=== PATIENT | male | born 1980 | race Caucasian/White ===

== ENCOUNTER 2016-09-21 19:19 | Emergency (ER) | payer MEDICAID ==
[2016-09-21 22:00] LABS: % BASOPHILS 0.6 % (0.0-2.0); % EOSINOPHILS 3.6 % (0.0-5.0); % LYMPHOCYTES 27.6 % (20.0-50.0); % MONOCYTES 11.5 % (2.0-10.0); % NEUTROPHILS 56.7 % (40.0-80.0); HEMATOCRIT 41.3 % (39.0-49.0); HEMOGLOBIN 13.4 gm/dL (13.2-17.3); MEAN CELL VOLUME 79.8 fl (80-99); MEAN CORPUSCULAR HGB CONC 32.5 pg (28.0-36.0); MEAN PLATELET VOLUME 8.7 fl; NEUTROPHILE ABSOLUTE 3.5 Th/cmm (1.8-8.0); PLATELET COUNT 211 Th/cmm (150-400); RED BLOOD COUNT 5.17 Mil/cmm (4.30-5.70); RED CELL DISTRIBUTION WIDTH 12.6 % (11.5-20.0); WHITE BLOOD COUNT 6.1 Th/cmm (4.8-10.8)
[2016-09-21 22:18] LABS: ANION GAP 8.3 (7.0-16.0); BUN - UREA NITROGEN 19 mg/dL (7-25); BUN/CREATININE RATIO 23.8; CALCIUM SERUM 9.4 mg/dL (8.6-10.3); CARBON DIOXIDE 26.8 mEq/L (21.0-31.0); CHLORIDE 106 mEq/L (98-107); CREATININE - SERUM 0.8 mg/dL (0.7-1.3); GLUCOSE 139 mg/dL (70-105); POTASSIUM SERUM 3.1 mEq/L (3.5-5.1); SODIUM SERUM 138 mEq/L (136-145)
[2016-09-21] MEDS ORDERED: Albuterol/Ipratropium Neb 3 ML AERS HHN ONE (22:19)
--- NOTE | 2016-09-21 22:24 | ED Physician Chart ---
Chief Complaint/HPI - Patient Information Date Seen:: 09/21/16 Time Seen:: 22:10 Chief Complaint:: cough History of Present Illness:: Patient has had a cough productive of clear sputum for last 1 month. He's had no chills or fever. Patient has no history of asthma or environmental allergies. Allergies:: Allergies Allergy/AdvReac Type Severity Reaction Status Date / Time No Known Allergies Allergy Verified 09/21/16 20:04 Vitals:: Vital Signs - 8 hr 09/21/16 09/21/16 19:50 22:07 Temp 98.5 F 98.6 F HR 101 90 RR 20 16 BP 124/86 120/80 O2 Sat % 95 96 Historian:: Patient Review:: Nurse's Note Reviewed Review of Systems - Review of Systems General/Constitutional: No fever, No chills Skin: No skin lesions Head: No headache Eyes: No loss of vision ENT: No earache Neck: No neck pain, No swelling Cardio Vascular: No chest pain Pulmonary: Cough GI: No nausea, No vomiting G/U: No dysuria, No frequency Musculoskeletal: No bone or joint pain, No back pain Endocrine: No polyuria, No polydipsia Psychiatric: No prior psych history, No depression Hematopoietic: No bruising Allergic/Immuno: No urticaria Neurological: No syncope Past Medical History - Past Medical History Past Medical History: No significant medical hx Family History: Other (bladder has asthma) Surgical History: None Medication: None Family Medical History - Family Member Mother History Unknown: Yes Ethnicity: Living Status: Unknown Labs/Radiology/EKG Results - Lab Results Results: Laboratory Tests 09/21/16 09/21/16 21:52 21:52 WBC 6.1 RBC 5.17 Hgb 13.4 Hct 41.3 MCV 79.8 L MCH 26.0 MCHC Differential 32.5 RDW 12.6 Plt Count 211 MPV 8.7 Neutrophils % 56.7 Lymphocytes % 27.6 Monocytes % 11.5 H Eosinophils % 3.6 Basophils % 0.6 Sodium 138 Potassium 3.1 L Chloride 106 Carbon Dioxide 26.8 Anion Gap 8.3 BUN 19 Creatinine 0.8 Est GFR ( Amer) > 60.0 Est GFR (Non-Af Amer) > 60.0 BUN/Creatinine Ratio 23.8 Glucose 139 H Calcium 9.4 - Radiology Results Results: Chest x-ray normal Assessment - Assessment General Assessment: Patient feels better after albuterol and Atrovent by aerosol ED Septic Shock - . Is Septic Shock (SBP<90, OR Lactate>4 mmol\L) present?: No - <6hrs of presentation: Vital Signs: Vital Signs - 8 hr 09/21/16 09/21/16 19:50 22:07 Temp 98.5 F 98.6 F HR 101 90 RR 20 16 BP 124/86 120/80 O2 Sat % 95 96 Reassessment (Disposition) - Reassessment Reassessment Condition:: Improved - Diagnosis Diagnosis:: Acute viral syndrome with wheezing and cough - Aftercare/Follow up Instructions Aftercare/Follow-Up Instructions:: Refer to Discharge Instructions Medication Prescribed:: Albuterol metered-dose inhaler to use 2 puffs every 4 hours as necessary and Robitussin-DM 4 ounces elixir to take 10 ML's 4 times a day - Patient Disposition Discharge/Transfer:: Home Condition at Disposition:: Stable, Improved ED Discharge Plan - Patient Disposition Instructions: Viral Infections, [id number]
[2016-09-21] MEDS: Albuterol/Ipratropium Neb 3 ML AERS HHN ONE (22:27)
--- NOTE | 2016-09-22 10:18 | Diagnostic Imaging Report ---
CHEST X-RAY: AP view INDICATION: Cough COMPARISON: None FINDINGS: There is no focal consolidation or pleural effusions The heart is at the upper limits of normal size. The osseous structures demonstrate no acute abnormalities. IMPRESSION: No focal airspace consolidation identified.
== END 2016-09-21 22:45 | disposition home or self-care (01) ==
LOC: ER 19:19
DX: B34.9 Viral infection, unspecified (principal); R06.2 Wheezing
CPT/HCPCS: 36415-UA; 71020-TC; 80048-TC; 85025-TC; 94640